=== PATIENT | male | born 1955 | race Caucasian/White ===

== ENCOUNTER 2021-01-05 13:45 | Emergency (ER) | payer SELFPAY ==
[2021-01-05 13:56] VITALS: BP 132/76
[2021-01-05] MEDS ORDERED: IBUPROFEN 600 MG TABLET PO STA (14:11)
--- NOTE | 2021-01-05 14:13 | ED Physician Documentation ---
History of Present Illness - Stated complaint Stated Complaint: LT ANKLE INJ - Chief complaint Chief Complaint: Ext Problem - History obtained from History obtained from: Patient - Additonal information Additional information: 66-year-old male who presents after falling off a ladder. Patient was working at home feels he was about 6 feet up and the ladder slipped out from underneath him. He is onto the ladder and rolled his left ankle. Presents now with left ankle pain and swelling and limited ability to weight-bear. He has not attempted any treatment prior to arrival. Review of Systems Ten Systems: 10 systems reviewed and negative Musculoskeletal: reports: Extremity pain ( Left ankle), Joint pain, Joint swelling (Left ankle) PD PAST MEDICAL HISTORY - Past Medical History Past Medical History: No - Allergies Allergies/Adverse Reactions: Allergies Allergy/AdvReac Type Severity Reaction Status Date / Time No Known Drug Allergies Allergy Verified 01/05/21 13:56 PD ED PE NORMAL - Vitals Vital signs reviewed: Yes - General General: Alert and oriented X 3, No acute distress, Well developed/nourished - HEENT HEENT: Atraumatic, Moist mucous membranes, Pharynx benign - Neck Neck: Supple, no meningeal sign, No bony TTP, No JVD - Cardiac Cardiac: RRR, No murmur - Respiratory Respiratory: No respiratory distress, Clear bilaterally - Extremities Extremities: Other (Left lateral ankle tenderness to palpation and mild swelling. No other Left lower extremity pain. 2+ pedal pulses, brisk cap refill. Moves toes without difficulty. No knee or hip injuries.) - Neuro Neuro: Alert and oriented X 3, No motor deficit, No sensory deficit, Normal speech Eye Opening: Spontaneous Motor: Obeys Commands Verbal: Oriented GCS Score: 15 - Psych Psych: Normal mood, Normal affect Results - Vitals Vitals: Vital Signs - 24 hr 01/05/21 13:51 Temperature 36.6 C Heart Rate 82 Respiratory 16 Rate Blood Pressure 132/76 H O2 Saturation 99 Oxygen O2 Source Room air PD MEDICAL DECISION MAKING - ED course Complexity details: reviewed results, d/w patient ED course: Patient presented after a fall in which she sustained an left ankle injury. We obtain imaging which was reassuring, I do not see any fractures or dislocations. Place the patient in Italo wrap and counseled him on use of crutches. Advised to keep leg elevated to help with swelling, use cool compress and ibuprofen or Tylenol as needed for pain. Reviewed expectant management and follow-up with his primary care provider in 1 to 2 weeks if no improvement in the pain. Departure - Departure Disposition: 01 Home, Self Care Clinical Impression: Ankle sprain Condition: Good Instructions: ED Sprain Ankle Comments: You presented after a fall in which she sustained a left ankle sprain. I do not see any fractures on the imaging. I recommend that you keep the ankle supported with Italo wrap or compression sleeve, you may use crutches as needed. Is okay to weight-bear as tolerated. Utilize cool compress, ibuprofen and Tylenol for pain. If you have pain beyond 1 to 2 weeks, follow-up with your primary care provider for reimaging.
--- NOTE | 2021-01-05 15:52 | XRAY Report ---
PROCEDURE: Ankle 3 View LT INDICATIONS: fall, left ankl epain TECHNIQUE: 3 views of the ankle were acquired. COMPARISON: None FINDINGS: Bones: Subtle vertically oriented lucency projects over the lateral talar dome on the anterior view. Remainder the visualized osseous structures appear intact. Alignment is anatomic. Ankle mortise is no rmally aligned. No suspicious bony lesions. Soft tissues: No tibiotalar joint effusion. Achilles tendon appears normal. IMPRESSION: Subtle linear lucency projecting over the lateral talar dome. Findings may represent a s mall nondisplaced fracture given history of trauma. There is overlying soft tissue swelling. Recommen d immobilization and repeat imaging in 10-14 days. Reviewed by: Mark Campbell MD on 01/05/2021 3:50 PM PDT Approved by: Mark Campbell MD on 01/05/2021 3:50 PM PDT Station ID: [id number]
--- NOTE | 2021-01-05 15:56 | XRAY Report ---
PROCEDURE: Foot 3 View LT INDICATIONS: fall, left ankle pain TECHNIQUE: 3 views of the foot were acquired. COMPARISON: None FINDINGS: Bones: No acute fractures or dislocations. No suspicious bony lesions. Severe degenerative changes of the left first metatarsophalangeal joint with subchondral sclerosis and subchondral degenerative cystic changes. Findings are most pronounced over the base of the left great toe proximal phalanx. Soft tissues: No tibiotalar joint effusion. Achilles tendon appears normal. Mild soft tissue swell ing of the left ankle and left foot IMPRESSION: Soft tissue swelling of the left ankle and left foot without underlying fracture or dislocation. Plea se refer to separate report of the ankle for further details. Severe degenerative changes of the left first metatarsophalangeal joint. Reviewed by: Mark Campbell MD on 01/05/2021 3:54 PM PDT Approved by: Mark Campbell MD on 01/05/2021 3:54 PM PDT Station ID: [id number]
== END 2021-01-05 16:29 | disposition home or self-care (01) ==
LOC: ED 13:45
DX: S93.402A Sprain of unspecified ligament of left ankle, initial encounter (principal); W11.XXXA Fall on and from ladder, initial encounter; Y92.009 Unspecified place in unspecified non-institutional (private) residence as the place of occurrence of the external cause
CPT/HCPCS: 73610; 73630; 99283; A9270

== ENCOUNTER 2021-01-07 09:26 | Emergency (ER) | payer SELFPAY ==
--- NOTE | 2021-01-07 09:43 | ED Physician Documentation ---
PD HPI LOWER EXT INJURY - Stated complaint Stated Complaint: LT ANKLE PX - Chief complaint Chief Complaint: Ext Problem - History obtained from History obtained from: Patient - History of Present Illness PD HPI LOW EXT INJURY LOCATION: Left, Ankle, Foot Where injury occurred: Work Timing - onset: How many days ago (has fallen from ladder and landed on feet 2 days ago, seen in ER with xray and given aircast and crutches. Patient says ankle more swollen today and more painful. No new injury. Has been using crutches mostly with some partial weight bearing.) Timing - details: Abrupt onset, Still present (worse pain today) Associated symptoms: Swelling. No: Weakness, Numbness Review of Systems Constitutional: denies: Fever, Chills Neurologic: denies: Focal weakness, Numbness PD PAST MEDICAL HISTORY - Past Surgical History Past Surgical History: No - Present Medications Home Medications: Ambulatory Orders Medication Instructions Recorded Confirmed HYDROcod/ACETAM 5/325 [[place] 5/325] 1 ea PO Q6H PRN #18 tablet 01/07/21 Ibuprofen [Motrin] 600 mg PO TID PRN #25 tab 01/07/21 - Allergies Allergies/Adverse Reactions: Allergies Allergy/AdvReac Type Severity Reaction Status Date / Time No Known Drug Allergies Allergy Verified 01/07/21 09:35 - Social History Does the pt smoke?: Yes Smoking Status: Current every day smoker Does the pt drink ETOH?: No Does the pt have substance abuse?: No - Immunizations Immunizations are current?: No - POLST Patient has POLST: No PD ED PE NORMAL - Vitals Vital signs reviewed: Yes - General General: No acute distress, Well developed/nourished - Derm Derm: Normal color, Warm and dry - Extremities Extremities: Other (left ankle with moderate effusion but not tense. I can feel DP and posterior tib pulses through edema. Good color and cap refill in toes. Able to move toes without pain. ) - Neuro Neuro: No motor deficit, No sensory deficit Results - Vitals Vitals: Vital Signs - 24 hr 01/07/21 01/07/21 09:28 10:50 Temperature 36.6 C 36.6 C Heart Rate 86 84 Respiratory 16 16 Rate Blood Pressure 113/80 118/79 O2 Saturation 99 98 Oxygen O2 Source Room air PD MEDICAL DECISION MAKING - ED course Complexity details: reviewed old records, considered differential (certainly moderate to large effusion in ankle is likely contributing to added pain now. Has movement, color, sensation and so not appearing to be compartment syndrome. ), d/w patient Departure - Departure Disposition: 01 Home, Self Care Clinical Impression: Ankle injury, Ankle pain Condition: Stable Record reviewed to determine appropriate education?: Yes Follow-Up: Inocente Ramos MD [Provider Admit Priv/Credential] - Prescriptions: Ibuprofen [Motrin] 600 mg PO TID PRN #25 tab PRN Reason: Pain HYDROcod/ACETAM 5/325 [[place] 5/325] 1 ea PO Q6H PRN #18 tablet PRN Reason: Pain Comments: Change to the walking boot orthosis to provide better stability of the ankle. However I would continue with partial to no weightbearing for the next week to week and a half to reduce the swelling and allow better initial healing. Follow-up with orthopedics in about a week and a half, call today for an appointment. There was question of a fracture of the top of the foot bone called the talus. Otherwise we would presume there is some injury of the joint capsule and ligaments given the degree of swelling in such. Both of these should be treatable with the cast boot and crutches. However ongoing assessment and good healing would be best judged by follow-up with the specialist. Elevate and rest your ankle often. Ibuprofen 3 times a day with food. To that add Tylenol or hydrocodone as needed for pain. I transmitted your prescriptions to [facility] in [place]. My narcotic instructions I am prescribing a short course of narcotic pain medication for you. These are potentially dangerous and addictive medications that should be used carefully. These medications may constipate you. Take an [id number] stool softener such as docusate twice daily with plenty of water while taking these medications. If you go 24 hours without a bowel movement, take [id number] MiraLAX, per package instructions. Do not drink or drive while taking these medications. If you received narcotic or sedating medications while in the emergency department do not drive for 24 hours. Store this medication in a safe, secure place and out of reach of children. It is a violation of federal law to give or sell this medication to another person or to use in a manner other than prescribed. The ED will not refill narcotic prescriptions, including prescriptions lost or stolen. You can dispose of unwanted medications at the [facility]'s office or at several pharmacies such as [facility]. Discharge Date/Time: 01/07/21 10:51
[2021-01-07] MEDS ORDERED: HYDROcod/ACETAM 5/325 MG TABLET PO STA (10:16)
[2021-01-07] MEDS ORDERED: IBUPROFEN 600 MG TABLET PO STA (10:16)
[2021-01-07 10:51] VITALS: BP 118/79
== END 2021-01-07 10:51 | disposition home or self-care (01) ==
LOC: ED 09:26
DX: S99.912D Unspecified injury of left ankle, subsequent encounter (principal); M25.472 Effusion, left ankle; W11.XXXD Fall on and from ladder, subsequent encounter
CPT/HCPCS: 99282; 99283; A9270

== ENCOUNTER 2021-01-19 09:46 | Outpatient (CLI) | payer MEDICAID ==
--- NOTE | 2021-01-21 00:11 | XRAY Report ---
PROCEDURE: Ankle 3 View LT INDICATIONS: LEFT ANKLE PAIN TECHNIQUE: 3 views of the ankle were acquired. Images became available for evaluation on 01/20/2021. COMPARISON: X-ray ankle 01/05/2021 FINDINGS: Bones: Previous lucency at the left talar dome remains present and unchanged. Ankle mortise is normal ly aligned. No suspicious bony lesions. Soft tissues: No tibiotalar joint effusion. Achilles tendon appears normal. IMPRESSION: Talar dome lucency remains unchanged. Fracture in this region cannot be definitively exc luded. If concern persists, continued short interval imaging follow-up or CT is recommended for addit ional evaluation. Reviewed by: Rosana See MD on 01/21/2021 12:10 AM PDT Approved by: Rosana See MD on 01/21/2021 12:10 AM PDT Station ID: [id number]
== END 2021-01-19 09:47 | disposition home or self-care (01) ==
LOC: DI.N 09:46
PROVIDERS: ATTEND Orthopaedic Surgery
DX: M25.572 Pain in left ankle and joints of left foot (principal)

== ENCOUNTER 2021-03-29 10:20 | Emergency (ER) | payer MEDICAID ==
[2021-03-29] MEDS ORDERED: SODIUM CHLORIDE 0.9% 1,000 ML IV STA (11:13)
--- NOTE | 2021-03-29 11:15 | ED Physician Documentation ---
PD HPI CHEST PAIN - Stated complaint Stated Complaint: CHEST PX - Chief complaint Chief Complaint: Cardiac - History obtained from History obtained from: Patient - History of Present Illness Timing - onset: Enter time (0300), Last night Timing - onset during: Sleep Timing - duration: Seconds (30) Timing - details: Abrupt onset, Now resolved Quality: Pressure, Sharp, Pain Location: Substernal, Left chest Radiation: No: Jaw, Neck, Back, Abdominal, Left upper extremity, Right upper extremity Improved by: Rest Associated symptoms: No: Shortness of air, Diaphoresis, Nausea, Vomiting, Feeling faint / dizzy, General Weakness, Palpitations, Cough Similar symptoms before: Has not had sx before Recently seen: Clinic - Additional information Additional information: 66-year-old male with an episode of substernal left chest pain last night lasting about 30 seconds was evaluated at the urgent care clinic and sent to the emergency department for further evaluation. He did have some subtle repolarization abnormalities on his electrocardiogram at the walk-in clinic. He otherwise has no specific history he is on no medications does not going to see the doctor. Works construction. He is noted over the past 3 to 4 days to have intermittent sharp aching chest pain and he has had this aching chest pain last all day. He did not have any modifying factors associated with this. He has no chest wall tenderness no pain on inspiration. Generally describes no other specific symptoms. Review of Systems Constitutional: denies: Fever Eyes: denies: Decreased vision Ears: denies: Ear pain Nose: denies: Congestion Throat: denies: Sore throat Cardiac: reports: Chest pain / pressure. denies: Palpitations, Pedal edema, Calf pain Respiratory: denies: Dyspnea, Cough, Wheezing GI: denies: Abdominal Pain, Nausea, Vomiting, Constipation, Diarrhea : reports: Frequency. denies: Dysuria Skin: denies: Rash PD PAST MEDICAL HISTORY - Past Surgical History Past Surgical History: No - Present Medications Home Medications: Ambulatory Orders Medication Instructions Recorded Confirmed HYDROcod/ACETAM 5/325 [[place] 5/325] 1 ea PO Q6H PRN #18 tablet 01/07/21 Ibuprofen [Motrin] 600 mg PO TID PRN #25 tab 01/07/21 - Allergies Allergies/Adverse Reactions: Allergies Allergy/AdvReac Type Severity Reaction Status Date / Time No Known Drug Allergies Allergy Verified 03/29/21 10:30 - Social History Does the pt smoke?: Yes Smoking Status: Current every day smoker Does the pt drink ETOH?: No Does the pt have substance abuse?: No - Immunizations Immunizations are current?: No - POLST Patient has POLST: No PD ED PE NORMAL - Vitals Vital signs reviewed: Yes (Normal) - General General: Alert and oriented X 3, No acute distress, Well developed/nourished - HEENT HEENT: Atraumatic, PERRL, EOMI - Neck Neck: Supple, no meningeal sign, No bony TTP - Cardiac Cardiac: RRR, Other (2 out of 6 holosystolic murmur at the low sternal border consistent with aortic stenosis.) - Respiratory Respiratory: No respiratory distress - Abdomen Abdomen: Soft, Non tender - Back Back: No CVA TTP, No spinal TTP - Derm Derm: Normal color, Warm and dry, No rash - Extremities Extremities: No deformity, No edema - Neuro Neuro: Alert and oriented X 3, .net developer 2-12 intact, No motor deficit, No sensory deficit, Normal speech Eye Opening: Spontaneous Motor: Obeys Commands Verbal: Oriented GCS Score: 15 - Psych Psych: Normal mood, Normal affect Results - Vitals Vitals: Vital Signs - 24 hr 03/29/21 03/29/21 03/29/21 10:23 12:00 12:52 Temperature 37.1 C Heart Rate 88 79 77 Respiratory 20 13 17 Rate Blood Pressure 130/77 124/78 128/84 H O2 Saturation 99 99 98 Oxygen O2 Source Room air - EKG (time done) 1023 Rate: Rate (enter#) (85) Rhythm: NSR Ischemia: Non specific changes Compare to prior EKG: Old EKG unavailable Computer interpretation: Agree with computer - Labs Labs: Laboratory Tests 03/29/21 03/29/21 03/29/21 11:05 11:05 11:05 WBC 11.3 H RBC 5.78 Hgb 16.2 Hct 47.7 MCV 82.5 MCH 28.0 MCHC 34.0 RDW 14.2 Plt Count 303 MPV 9.5 Neut # (Auto) 8.6 H Lymph # (Auto) 1.9 Harper # (Auto) 0.6 Eos # (Auto) 0.1 Baso # (Auto) 0.1 Absolute Nucleated RBC 0.00 Nucleated RBC % 0.0 Sodium 139 Potassium 3.8 Chloride 103 Carbon Dioxide 26 Anion Gap 10.0 BUN 17 Creatinine 0.9 Estimated GFR (MDRD) 85 L Glucose 106 H Calcium 9.5 Total Bilirubin 0.4 AST 20 ALT 32 Alkaline Phosphatase 53 Troponin I High Sens 5.1 Total Protein 7.1 Albumin 4.2 Globulin 2.9 Albumin/Globulin Ratio 1.4 Lipase 45 Urine Color Urine Clarity Urine pH Ur Specific [place] Urine Protein Urine Glucose (UA) Urine Ketones Urine Occult Blood Urine Nitrite Urine Bilirubin Urine Urobilinogen Ur Leukocyte Esterase Ur Microscopic Review Urine Culture Comments 03/29/21 11:38 WBC RBC Hgb Hct MCV MCH MCHC RDW Plt Count MPV Neut # (Auto) Lymph # (Auto) Harper # (Auto) Eos # (Auto) Baso # (Auto) Absolute Nucleated RBC Nucleated RBC % Sodium Potassium Chloride Carbon Dioxide Anion Gap BUN Creatinine Estimated GFR (MDRD) Glucose Calcium Total Bilirubin AST ALT Alkaline Phosphatase Troponin I High Sens Total Protein Albumin Globulin Albumin/Globulin Ratio Lipase Urine Color YELLOW Urine Clarity CLEAR Urine pH 5.0 Ur Specific [place] 1.010 Urine Protein NEGATIVE Urine Glucose (UA) NEGATIVE Urine Ketones NEGATIVE Urine Occult Blood NEGATIVE Urine Nitrite NEGATIVE Urine Bilirubin NEGATIVE Urine Urobilinogen 0.2 (NORMAL) Ur Leukocyte Esterase NEGATIVE Ur Microscopic Review NOT INDICATED Urine Culture Comments NOT INDICATED - Rads (name of study) chest Radiology: Prelim report reviewed (Impression: No acute pulmonary process.), EMP read indepedently, See rad report Procedures - IVC sono (time) 1110 Bedside IVC sono: IVC measures (cm) (0.74), IVC collapsed c insp (cm) (complete), Dehydration (est 2 liter deficit) PD MEDICAL DECISION MAKING - ED course Complexity details: reviewed results, re-evaluated patient, considered d ifferential, d/w patient ED course: 66-year-old male presents with some atypical type of chest pain is found to be dehydrated on interrogation of the inferior vena cava. He is not currently having symptoms. He is administered a liter of saline and he is noted to have a holosystolic murmur at the left sternal border consistent with a potential aortic stenosis. I have asked the patient to follow-up to have echo done of his heart. Departure - Departure Disposition: 01 Home, Self Care Clinical Impression: Atypical chest pain, Dehydration, Aortic systolic murmur on examination Condition: Stable Instructions: ED Chest Pain Atypical Unkn Cause, ED Dehydration Follow-Up: [facility] [Provider Group] Comments: Rodney, today we found you were dehydrated and have a heart murmur. The heart murmur will need an ultrasound of the heart -- an "echocardiogram" and this can be arranged by your primary care doctor. Discharge Date/Time: 03/29/21 12:52
[2021-03-29 11:20] LABS: BASOPHILS # (AUTO) 0.1 10^3/uL (0.0-0.1); BASOPHILS % (AUTO) 0.8 %; EOSINOPHILS # (AUTO) 0.1 10^3/uL (0.0-0.7); EOSINOPHILS % (AUTO) 0.5 %; HCT - HEMATOCRIT 47.7 % (42.0-52.0); HGB - HEMOGLOBIN 16.2 g/dL (14.0-18.0); LYMPHOCYTES # (AUTO) 1.9 10^3/uL (1.5-3.5); LYMPHOCYTES % (AUTO) 16.7 %; MEAN CORPUSCULAR VOLUME 82.5 fL (80.0-94.0); MEAN PLATELET VOLUME 9.5 fL (7.4-11.4); MONOCYTES # (AUTO) 0.6 10^3/uL (0.0-1.0); MONOCYTES % (AUTO) 5.6 %; NEUTROPHILS # (AUTO) 8.6 10^3/uL (1.5-6.6); NEUTROPHILS % (AUTO) 76.1 %; PLT - PLATELET COUNT 303 10^3/uL (130-450); RED BLOOD COUNT 5.78 10^6/uL (4.70-6.10); RED CELL DISTRIBUTION WIDTH 14.2 % (12.0-15.0); WHITE BLOOD COUNT 11.3 x10^3/uL (4.8-10.8)
--- NOTE | 2021-03-29 11:34 | XRAY Report ---
PROCEDURE: Chest 1 View X-Ray INDICATIONS: chest pain TECHNIQUE: One view of the chest was acquired. COMPARISON: None FINDINGS: Surgical changes and devices: None. Lungs and pleura: No pleural effusions or pneumothorax. Lungs are clear. Mediastinum: Mediastinal contours appear normal. Heart size is normal. Bones and chest wall: No suspicious bony lesions. Overlying soft tissues appear unremarkable. IMPRESSION: No acute pulmonary process. Reviewed by: Rosana See MD on 03/29/2021 11:32 AM [facility] Approved by: Rosana See MD on 03/29/2021 11:32 AM [facility] Station ID: [id number]
[2021-03-29 11:38] LABS: ALBUMIN 4.2 g/dL (3.2-5.5); ALBUMIN/GLOBULIN RATIO 1.4 (1.0-2.2); BILIRUBIN,TOTAL 0.4 mg/dL (0.2-1.0); CALCIUM 9.5 mg/dL (8.5-10.3); CREATININE 0.9 mg/dL (0.6-1.2); POTASSIUM 3.8 mmol/L (3.5-5.0); TOTAL PROTEIN 7.1 g/dL (6.7-8.2)
[2021-03-29 11:58] LABS: BILIRUBIN,URINE NEGATIVE (NEGATIVE); GLUCOSE, URINE (UA) NEGATIVE (NEGATIVE); KETONES,URINE (UA) NEGATIVE (NEGATIVE); LEUKOCYTE ESTERASE, URINE NEGATIVE (NEGATIVE); NITRITE,URINE NEGATIVE (NEGATIVE); OCCULT BLOOD,URINE NEGATIVE (NEGATIVE); PROTEIN,URINE NEGATIVE (NEGATIVE); UROBILINOGEN,URINE 0.2 (NORMAL) E.U./dL (NORMAL)
[2021-03-29 12:03] LABS: CLARITY,URINE CLEAR (CLEAR)
[2021-03-29 12:53] VITALS: BP 128/84
== END 2021-03-29 12:52 | disposition home or self-care (01) ==
LOC: ED 10:20
DX: I35.8 Other nonrheumatic aortic valve disorders (principal); R07.89 Other chest pain; E86.0 Dehydration; F17.200 Nicotine dependence, unspecified, uncomplicated
CPT/HCPCS: 36415; 80053; 81001; 81003; 83690; 84484; 85025; 87086; 93005; 96360; 99284

== ENCOUNTER 2022-04-15 08:00 | Outpatient (CLI) | payer MEDICARE, MEDICAID | END 2022-04-15 23:59 | disposition home or self-care (01) | LOC: LAB.S 08:00 | PROVIDERS: ATTEND Physician Assistant | DX: R42 Dizziness and giddiness (principal) | CPT/HCPCS: 82962 ==

== ENCOUNTER 2022-04-17 19:36 | Emergency (ER) | payer MEDICARE, MEDICAID ==
--- OUTSIDE RECORDS SUMMARY | 2022-04-17 19:56 | EXTERNAL MEDICAL SUMMARY RPT | Continuity of Care Document ---
:1955 Author Organization [place] Address [address] [place] [address] Phone Care Team Providers Name Role Phone Unavailable Unavailable Unavailable Mandeep Haddad Pa-C Unavailable Unavailable Allergies No information. Encounters No information. Functional Status No information. Immunizations No information. Medications date description facility 2022-04-15 00:00 No Known Medications [facility] Anc[facility] Problems date description facility 2022-04-15 00:00 Ventricular premature complex [facility] C lamin 2022-04-15 00:00 Systolic murmur Walk[facility]In Clinic [facility] Services C lamin 2022-04-15 00:00 Dizziness Walk[facility]In Clinic [facility] C lamin 2022-04-15 00:00 Other premature beats Walk[facility]In [facility] Care & Ancillary Services C lamin 2022-04-15 00:00 Undiagnosed cardiac murmurs Walk-In [facility] Primary Care & Ancillary Services C lamin 2022-04-15 00:00 Ventricular premature Walk[facility]In Clinic [facility] Care & depolarization Ancillary Services C lamin 2022-04-15 00:00 Cardiac murmur, unspecified Walk-In [facility] Anc[facility] Services C lamin 2022-04-15 00:00 Dizziness and giddiness [facility] C lamin Procedures date description facility 2022-04-15 00:00 Visit Code Hold Walk[facility]In Clinic [facility] Robert 2022-04-15 00:00 POC GLUCOSE BLOOD TEST [facility] 2022-04-15 00:00 EKG Office Complete Walk[facility]In [facility] Results/Labs test date author facility value unit interpret ation Result panel 1 (unknown) (no date) (unknown) Walk-In (no value) (units (unk nown) Clinic Primary unknown) Care [facility] Services [facility] Social History date description facility 2022-04-15 00:00 Current every day smoker Walk[facility]In [facility] [place] [facility] Vital Signs date measurement value units 2022-04-15 00:00 BMI 25.18 kg/m2 2022-04-15 00:00 BP_diastolic 84 mmHg 2022-04-15 00:00 BP_systolic 131 mmHg 2022-04-15 00:00 heart_rate 81 /min 2022-04-15 00:00 height_metric 182.88 cm 2022-04-15 00:00 height_standard 72 in 2022-04-15 00:00 respiration_rate 16 /min 2022-04-15 00:00 temperature_metric 36.61 C 2022-04-15 00:00 temperature_standard 97.9 F 2022-04-15 00:00 weight_metric 83.91 kg 2022-04-15 00:00 weight_standard 185 lb
[2022-04-17 20:20] LABS: BASOPHILS # (AUTO) 0.1 10^3/uL (0.0-0.1); BASOPHILS % (AUTO) 0.8 %; EOSINOPHILS # (AUTO) 0.1 10^3/uL (0.0-0.7); EOSINOPHILS % (AUTO) 1.1 %; HCT - HEMATOCRIT 50.2 % (42.0-52.0); HGB - HEMOGLOBIN 16.5 g/dL (14.0-18.0); LYMPHOCYTES # (AUTO) 2.9 10^3/uL (1.5-3.5); MEAN CORPUSCULAR HEMOGLOBIN 26.9 pg (27.0-31.0); MEAN CORPUSCULAR HGB CONC 32.9 g/dL (32.0-36.0); MEAN CORPUSCULAR VOLUME 81.9 fL (80.0-94.0); MEAN PLATELET VOLUME 9.4 fL (7.4-11.4); MONOCYTES # (AUTO) 0.7 10^3/uL (0.0-1.0); MONOCYTES % (AUTO) 6.4 %; NEUTROPHILS # (AUTO) 6.5 10^3/uL (1.5-6.6); NEUTROPHILS % (AUTO) 63.5 %; PLT - PLATELET COUNT 321 10^3/uL (130-450); RED BLOOD COUNT 6.13 10^6/uL (4.70-6.10); RED CELL DISTRIBUTION WIDTH 13.7 % (12.0-15.0); WHITE BLOOD COUNT 10.3 x10^3/uL (4.8-10.8)
--- NOTE | 2022-04-17 20:33 | ED Physician Documentation ---
History of Present Illness - Stated complaint Stated Complaint: CHEST PAIN - Chief complaint Chief Complaint: Cardiac - History obtained from History obtained from: Patient, Family - Additonal information Additional information: The patient comes to the emergency department chief complaint of episodes of feeling "off" for the last several days. He states that even though he described as feeling "dizzy" it is really not a sensation of either lightheadedness or of movement that is not actually happening. He states he just does not feel like himself. He does not get any generalized weakness or an y focal weakness when this happens. He does not have any trouble getting his words out or abnormalities in his vision. He states that he just feels "off" like he is "in a haze". He does not get any chest pain or shortness of breath at that time. No sweating. He has had he has had some nausea recently but states it does not really seem to be related to the off feeling necessarily. The patient states the symptoms can come on randomly, and without any obvious trigger. They can last for an hour or an entire day. The patient states he is not having any symptoms right now and actually feels as though the symptoms have been less noticeable today than in the last few days. Other than the nausea, he has not had any other symptoms of illness. No cough or sore throat. No rhinorrhea. No fevers or chills. He has a longstanding history of chronic episodes of chest pain, which he states are worse with certain movements or positions; however, he states he has not had any chest pain for the last few days. He states that the symptoms did concern him enough that he went to the urgent care clinic 3 days ago and they told him that he should go over to [place] and get checked out in the emergency department. Patient was there 2 nights ago and states that after 7-1/2 hours of waiting in the lobby, he finally decided to leave. He did have labs, a chest x-ray, and an EKG performed there, all of which were unremarkable. The patient does not have a primary care physician and has never undergone a stress test. He has been a smoker for many years, but does not have any diagnosis of diabetes or high blood pressure. Who states he feels like he is a fairly healthy person. He does note that his grandfather suddenly of an [place] when he was in his 40s, but that is the only family member that he knows of who has had an acute coronary event. The patient denies any other complaints at this time. No symptoms right now. Review of Systems Constitutional: reports: Reviewed and negative Eyes: reports: Reviewed and negative Ears: reports: Reviewed and negative Nose: reports: Reviewed and negative Throat: reports: Reviewed and negative Cardiac: reports: Reviewed and negative Respiratory: reports: Reviewed and negative GI: reports: Reviewed and negative : reports: Reviewed and negative Skin: reports: Reviewed and negative Musculoskeletal: reports: Reviewed and negative Neurologic: reports: Reviewed and negative Psychiatric: reports: Reviewed and negative Endocrine: reports: Reviewed and negative Immunocompromised: reports: Reviewed and negative PD PAST MEDICAL HISTORY - Past Medical History Past Medical History: No - Past Surgical History Past Surgical History: No - Present Medications Home Medications: Ambulatory Orders Medication Instructions Recorded Confirmed HYDROcod/ACETAM 5/325 [[place] 5/325] 1 ea PO Q6H PRN #18 tablet 01/07/21 Ibuprofen [Motrin] 600 mg PO TID PRN #25 tab 01/07/21 - Allergies Allergies/Adverse Reactions: Allergies Allergy/AdvReac Type Severity Reaction Status Date / Time No Known Drug Allergies Allergy Verified 04/17/22 19:39 - Social History Does the pt smoke?: Yes Smoking Status: Current every day smoker Does the pt drink ETOH?: No Does the pt have substance abuse?: Yes Substance Use and Type: Marijuana - Immunizations Immunizations are current?: No Immunizations: TDAP >10years/unknown - POLST Patient has POLST: No PD ED PE NORMAL - Vitals Vital signs reviewed: Yes - General General: Alert and oriented X 3, No acute distress, Well developed/nourished - HEENT HEENT: Atraumatic, PERRL, EOMI, Moist mucous membranes - Neck Neck: Supple, no meningeal sign - Cardiac Cardiac: RRR, No murmur, Strong equal pulses - Respiratory Respiratory: No respiratory distress, Clear bilaterally - Abdomen Abdomen: Soft, Non tender, Non distended - Derm Derm: Normal color, Warm and dry, No rash - Extremities Extremities: No deformity, No edema, No calf tenderness / cord - Neuro Neuro: Alert and oriented X 3, 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, Normal speech - Psych Psych: Normal mood, Normal affect Results - Vitals Vitals: Vital Signs - 24 hr 04/17/22 04/17/22 04/17/22 19:39 19:45 21:30 Temperature 36.5 C 37.0 C Heart Rate 93 90 66 Respiratory 16 17 17 Rate Blood Pressure 143/85 H 134/84 H 117/86 H O2 Saturation 98 97 97 Oxygen O2 Source Room air - Labs Labs: Laboratory Tests 04/17/22 04/17/22 04/17/22 20:15 20:15 20:15 WBC 10.3 RBC 6.13 H Hgb 16.5 Hct 50.2 MCV 81.9 MCH 26.9 L MCHC 32.9 RDW 13.7 Plt Count 321 MPV 9.4 Neut # (Auto) 6.5 Lymph # (Auto) 2.9 [place] # (Auto) 0.7 Eos # (Auto) 0.1 Baso # (Auto) 0.1 Absolute Nucleated RBC 0.00 Nucleated RBC % 0.0 Sodium 136 Potassium 3.6 Chloride 99 L Carbon Dioxide 24 Anion Gap 13.0 BUN 17 Creatinine 1.0 Estimated GFR (MDRD) 75 L Glucose 117 H Calcium 9.8 Total Bilirubin 0.8 AST 23 ALT 35 Alkaline Phosphatase 52 Troponin I High Sens 7.8 Total Protein 7.4 Albumin 4.1 Globulin 3.3 Albumin/Globulin Ratio 1.2 Lipase 31 TSH 04/17/22 20:15 WBC RBC Hgb Hct MCV MCH MCHC RDW Plt Count MPV Neut # (Auto) Lymph # (Auto) [place] # (Auto) Eos # (Auto) Baso # (Auto) Absolute Nucleated RBC Nucleated RBC % Sodium Potassium Chloride Carbon Dioxide Anion Gap BUN Creatinine Estimated GFR (MDRD) Glucose Calcium Total Bilirubin AST ALT Alkaline Phosphatase Troponin I High Sens Total Protein Albumin Globulin Albumin/Globulin Ratio Lipase TSH 2.57 PD Medical Decision Making - ED course Complexity details: reviewed old records, reviewed results, re-evaluated patient, considered differential, d/w patient, d/w family ED course: I reviewed the patient's records from [place], and found that he had had a CBC, CMP, troponin, BNP, EKG, and chest x-ray, all of which were unremarkable. The EKG did, by physicians report, demonstrates some "nonspecific ST and T wave normalities" and was abnormal. No evidence of acute ischemia was documented at that time. EKG was performed today, and showed borderline left axis deviation, which had been present on the patient's EKG few days ago at the urgent care clinic. Repolarization abnormality was noted in anterolateral leads, though there Was some motion artifact on the patient's EKG. Repeat labs were performed here in the emergency department. These were ordered and reviewed by me, As follows: CBC unremarkable. ER abdominal panel with no significant abnormalities. EKG showed nonspecific changes, which I did not feel were attributable to ischemia, based on the patient's prior EKGs and lack of symptoms at this point in time. The patient's TSH which was ordered and reviewed by me was normal. I discussed with the patient that I am not exactly sure why he is feeling the way he has, but given that he has had no chest symptoms for the last several days, I do not think that his feeling of being "off" is related to his chronic chest pain. I have discussed with the patient that it is possible, given the symptoms he has had, that he has cut a viral illness and this is causing the feel the way he does. I have given him the contact information for Tara Reyez, who is covering primary care follow-up for our ER patient's who do not have primary care established, and I have advised him to call her office first thing in the morning to get established in primary care. I have advised the patient that he should have a stress test done to close the loop on the chest pain. I have advised the patient to return to the emergency department should he develop severely worsening chest pain, especially in association with other concerning symptoms, which we have discussed. Departure - Departure Disposition: 01 Home, Self Care Clinical Impression: Feeling unwell, PVCs (premature ventricular contractions) Condition: Stable Instructions: Premature Ventricular Contract About, ED Dizziness [facility] Follow-Up: Amparo Bragg ARNP [Credentialed Staff Provider] - Comments: Your tests today look good, as they did a couple of nights ago. You have some benign "extra beats" that your monitor reading and EKG have picked up. These are extremely common and generally, are not something to worry about. However, if you are feeling near fainting when they happen, or if they are so bothersome as to keep you up at night, then you should talk to your doctor about potentially being on medication for that or about following up with cardiology to discuss other options. It is not clear exactly what is causing you to feel "off" although it is possible, given the normal labs and the lack of any cardiac symptoms, that you have picked up a touch of one of the many viruses that are going around, and this is caused the nausea and the "off" feeling. Regarding your episodes of chest pain, as well as the occasional "extra beats", it would be a good idea for you to follow-up in primary care to discuss wearing an event monitor and having a stress test done. You should also follow-up for a general checkup and to be established with somebody who can provide for your regular care. Please also consider getting help with your smoking, as this does put you at risk for cardiovascular disease including heart attacks and strokes. If you develop severe chest pain that is accompanied by shortness of breath, facial sweating, nausea, lightheadedness, or a general sense of being very unwell, please return to the emergency department immediately. Otherwise, be sure to drink plenty of fluids and make the next soonest appointment to follow-up in primary care. Discharge Date/Time: 04/17/22 21:30
[2022-04-17 20:34] LABS: ALBUMIN 4.1 g/dL (3.2-5.5); ALBUMIN/GLOBULIN RATIO 1.2 (1.0-2.2); BILIRUBIN,TOTAL 0.8 mg/dL (0.2-1.0); CALCIUM 9.8 mg/dL (8.5-10.3); POTASSIUM 3.6 mmol/L (3.5-5.0); TOTAL PROTEIN 7.4 g/dL (6.7-8.2)
[2022-04-17 21:30] VITALS: BP 117/86
== END 2022-04-17 21:30 | disposition home or self-care (01) ==
LOC: ED 19:36
DX: R53.81 Other malaise (principal); I49.3 Ventricular premature depolarization; R07.9 Chest pain, unspecified; G89.29 Other chronic pain; F17.200 Nicotine dependence, unspecified, uncomplicated
CPT/HCPCS: 36415; 80053; 83690; 84443; 84484; 85025; 93005; 99284